=== PATIENT | female | born 1960 | race Caucasian/White ===

== ENCOUNTER 2021-02-09 12:25 | Outpatient (RCR) | payer OTHER | END 2021-03-03 | disposition home or self-care (01) | LOC: ONC 12:25 | PROVIDERS: ATTEND Internal Medicine Hematology & Oncology | DX: D47.2 Monoclonal gammopathy (principal); L50.8 Other urticaria; E66.9 Obesity, unspecified; Z72.0 Tobacco use | CPT/HCPCS: 99214 ==

== ENCOUNTER 2021-03-09 10:21 | Outpatient (RCR) | payer OTHER ==
[2021-03-31] MEDS ORDERED: LEVO137T32 PO (08:03)
== END 2021-04-03 | disposition home or self-care (01) ==
LOC: ONC 10:21
PROVIDERS: ATTEND Internal Medicine Hematology & Oncology
DX: D47.2 Monoclonal gammopathy (principal); L50.8 Other urticaria; E66.9 Obesity, unspecified; E03.9 Hypothyroidism, unspecified; C90.00 Multiple myeloma not having achieved remission; Z72.0 Tobacco use
CPT/HCPCS: 99213

== ENCOUNTER 2021-03-31 07:24 | Day surgery (SDC) | payer OTHER ==
[~2021-03-31] VITALS: Ht 172.7 cm; Wt 159.2 kg
[2021-03-31] MEDS ORDERED: LEVO137T32 PO (08:03)
[2021-03-31 08:15] LABS: BASOPHILS % (AUTO) 1 % (0-10); EOSINOPHILS # (AUTO) 0.1 10^3/uL (0.0-0.3); EOSINOPHILS % (AUTO) 2 % (0-10); HEMATOCRIT 40 % (35-52); HEMOGLOBIN 13.2 g/dL (11.5-16.0); MEAN CORPUSCULAR HEMOGLOBIN 32 pg (25-34); MEAN CORPUSCULAR HGB CONC 33 g/dL (32-36); MEAN CORPUSCULAR VOLUME 97 fL (80-99); MONOCYTES # (AUTO) 0.5 10^3/uL (0.0-1.0); PLATELET COUNT 155 10^3/uL (130-400)
[2021-03-31] MEDS ORDERED: fentaNYL INJ 100 MCG/2 ML AMP INJ ONE (08:15)
[2021-03-31] MEDS ORDERED: MIDAZOLAM 2 MG/2 ML (VERSED) VIAL INJ ONE (08:15)
[2021-03-31] MEDS ORDERED: LIDOCAINE 1% INJ 20 ML VIAL INJ ONE (08:15)
[2021-03-31] MEDS ORDERED: NS IV 1000 ML 1,000 ML ONE (08:25)
[2021-03-31 08:26] LABS: PROTHROMBIN TIME PATIENT 13.4 SEC (12.2-14.7)
[2021-03-31 08:37] LABS: ABSOLUTE RETIC # 70 10e9/uL (24-90); LYMPHOCYTES # (AUTO) 1.4 10^3/uL (1.0-4.0); LYMPHOCYTES % (AUTO) 28 % (12-44); MEAN PLATELET VOLUME 11.4 fL (9.0-12.2); MONOCYTES % (AUTO) 11 % (0-12); NEUTROPHILS % (AUTO) 59 % (42-75)
[2021-03-31 08:48] LABS: EOSINOPHILS % (MANUAL) 3 %; LYMPHOCYTES % (MANUAL) 27 %; MONOCYTES % (MANUAL) 9 %; NEUTROPHILS % (MANUAL) 61 %
[2021-03-31 08:50] LABS: RBC MORPH NORMAL
[2021-03-31 09:15] VITALS: BP 141/93
[2021-03-31 09:20] VITALS: BP 143/91
[2021-03-31 09:25] VITALS: BP 158/101
[2021-03-31] MEDS ORDERED: NS IV 1000 ML 1,000 ML IV SCH (10:00)
--- NOTE | 2021-03-31 10:04 | Pre-Op Note & Conscious Sedat ---
Pre-Operative Progress Note H&P Reviewed The H&P was reviewed, patient examined and no changes noted. Date H&P Reviewed: Mar 31, 2021 Time H&P Reviewed: 08:00 Pre-Op Diagnosis: myeloma Conscious Sedation Pre-Proced Time 08:00 ASA Score 2 For ASA 3 and 4: Consider anesthesia and medical clearance. Also, for patients with a history of failed moderate sedation consider anesthesia. Airway Lungs Heart ASA score ASA 1: a normal healthy patient ASA 2: a patient with a mild systemic disease (mid diabetes, controlled hypertension, obesity ASA 3: a patient with a severe systemic disease that limits activity (angina, COPD, prior Myocardial infarction) ASA 4: a patient with an incapacitating disease that is a constant threat to life (CHF, renal failure) ASA 5: a moribund patient not expected to survive 24 hrs. (ruptured aneurysm) ASA 6: a declared brain- patient whose organs are being harvested. For emergent operations, add the letter E after the classification Mallampati Classification Grade 2 Sedation Plan Analgesia, Amnesia, Plan communicated to team members, Discussed options with patient/fam, Discussed risks with patient/fam The patient is an appropriate candidate to undergo the planned procedure, sedation, and anesthesia. The patient immediately re-assessed prior to indication. LETICIA SEAMAN MD Mar 31, 2021 10:04
[2021-03-31] MEDS ORDERED: ACETAMINOPHEN 500 MG TAB (TYLENOL) ONE (10:12)
[2021-03-31] MEDS ORDERED: ACETAMINOPHEN 500 MG TAB (TYLENOL) PO ONE (10:15)
--- NOTE | 2021-03-31 10:46 | Diagnostic Imaging Report ---
INDICATION: Multiple myeloma. Patient presents for CT-guided bone marrow aspiration and biopsy. TECHNIQUE: Patient was brought to the CT suite, placed on table in the prone position. Axial imaging through the pelvis was performed to evaluate appropriate entry site. The procedure was performed utilizing conscious sedation with radiology nursing and constant patient monitoring. Patient was given total of 50 mcg of fentanyl intravenously and 1 mg of Versed intravenously. Total procedure time is approximately 6 minutes. Low back was prepped and draped in the usual sterile fashion. Small amount of 1% lidocaine was utilized for local anesthesia. The bone marrow needle was advanced and placed with its tip along the posterior cortex of the right iliac bone. The needle was passed through the cortex utilizing a bone marrow drill. Two bone marrow aspirates were then obtained. Next, the drill was again utilized to obtain a bone marrow core biopsy. Needle was removed and hemostasis was obtained using manual compression. Patient tolerated the procedure well and left the department in stable condition. IMPRESSION: Successful CT-guided bone marrow aspiration and core biopsy, utilizing conscious sedation. Pathology results are currently pending. Dictated by: Dictated on workstation # [id number]
[2021-03-31 11:35] VITALS: BP 129/79
[2021-03-31] MEDS ORDERED: HYDROcodone/APAP 5 MG/325 MG (LORTAB) TAB PO PRN (11:45)
== END 2021-03-31 12:13 | disposition home or self-care (01) ==
LOC: RAD 07:24
PROVIDERS: ATTEND Internal Medicine Hematology & Oncology
DX: C90.00 Multiple myeloma not having achieved remission (principal)
CPT/HCPCS: 36415; 38222; 77012; 85007; 85027; 85045; 85610; 85730; 88237; 88264; 99156

== ENCOUNTER → 2021-04-03 | Outpatient (CLI) | payer OTHER ==
[~2021-04-03] MED LIST: LEVO137T32 PO
--- NOTE | 2021-04-03 16:55 | Diagnostic Imaging Report ---
BONE SURVEY COMPLETE Comparison: None available. Indication: Multiple myeloma Technique: Multiple projections of the skull, appendicular and axial skeleton were obtained for a total of 24 views. Findings: Skull: No focal lytic lesion within the calvarium. 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 No destructive skeletal lesion is appreciated within the spine. Mild degenerative wedging of a few lower thoracic vertebrae. Chest: No expansile lytic lesion within the ribs. Pelvis: Mild irregularity of the left iliac wing has a chronic appearance. Lower extremities: No focal osseous lesion or endosteal scalloping. No periosteal reaction. Prior ACL reconstruction on the right. Upper extremities: No focal osseous lesion or endosteal scalloping. No periosteal reaction. Impression: 1. No focal lytic lesion within the axial and appendicular skeleton. Dictated by: Dictated on workstation # [id number]
== END ==
LOC: RAD 13:41
PROVIDERS: ATTEND Internal Medicine Hematology & Oncology
DX: C90.00 Multiple myeloma not having achieved remission (principal)
CPT/HCPCS: 77075

== ENCOUNTER 2021-04-26 09:43 | Outpatient (RCR) | payer OTHER | END 2021-05-01 | disposition home or self-care (01) | LOC: ONC 09:43 | PROVIDERS: ATTEND Internal Medicine Hematology & Oncology | DX: C90.00 Multiple myeloma not having achieved remission (principal); D47.2 Monoclonal gammopathy; L50.8 Other urticaria; E66.9 Obesity, unspecified; E03.9 Hypothyroidism, unspecified; Z72.0 Tobacco use | CPT/HCPCS: 99213 ==

== ENCOUNTER → 2021-05-03 | Outpatient (CLI) | payer OTHER ==
[~2021-05-03] MED LIST changes: +HOLD METFORMIN - RECEIVED CONTRAST 20 ML VIAL IV SCH; +IOHEXOL 350 MG/ML 100 ML (OMNIPAQUE 350) VIAL IV ONE; +NS 100 ML (IVPB) BAG IV ONE
--- NOTE | 2021-05-03 16:26 | Diagnostic Imaging Report ---
INDICATION: History of multiple myeloma. EXAMINATION: CT chest, abdomen, and pelvis with and without contrast on 05/03/2021. COMPARISON: None. FINDINGS: CHEST: There is bibasilar dependent atelectasis and/or scar. Within the right upper lobe, there is a vague nodularity which measures 5.3 mm in size. An almost 3 mm nodule in the peripheral aspect of the right upper lobe is seen laterally. The remaining lungs are clear. No pleural or pericardial effusions. No mediastinal or hilar adenopathy. No axillary adenopathy. The osseous structures are unremarkable. ABDOMEN/PELVIS: The liver, spleen, gallbladder, pancreas, and adrenal glands are unremarkable. There is a cystic lesion in the right kidney, simple in appearance. The left kidney is unremarkable. There is no ascites. There is no free air. There is no acute osseous abnormality. IMPRESSION: Incidental findings with no acute abnormality appreciated. Dictated by: Dictated on workstation # [id number]
== END ==
LOC: RAD 09:45
PROVIDERS: ATTEND Internal Medicine Hematology & Oncology
DX: E07.9 Disorder of thyroid, unspecified (principal); Z85.79 Personal history of other malignant neoplasms of lymphoid, hematopoietic and related tissues
CPT/HCPCS: 71260; 74178

== ENCOUNTER 2021-05-10 10:04 | Outpatient (RCR) | payer OTHER ==
[2021-05-03 10:51] LABS: BASOPHILS % (AUTO) 1 % (0-10); EOSINOPHILS # (AUTO) 0.1 10^3/uL (0.0-0.3); EOSINOPHILS % (AUTO) 3 % (0-10); HEMATOCRIT 41 % (35-52); HEMOGLOBIN 13.9 g/dL (11.5-16.0); LYMPHOCYTES # (AUTO) 1.6 10^3/uL (1.0-4.0); LYMPHOCYTES % (AUTO) 32 % (12-44); MEAN CORPUSCULAR HEMOGLOBIN 32 pg (25-34); MEAN CORPUSCULAR HGB CONC 34 g/dL (32-36); MEAN CORPUSCULAR VOLUME 94 fL (80-99); MEAN PLATELET VOLUME 10.8 fL (9.0-12.2); MONOCYTES # (AUTO) 0.5 10^3/uL (0.0-1.0); MONOCYTES % (AUTO) 10 % (0-12); NEUTROPHILS # (AUTO) 2.8 10^3/uL (1.8-7.8); NEUTROPHILS % (AUTO) 55 % (42-75); PLATELET COUNT 173 10^3/uL (130-400)
[2021-05-03 11:17] LABS: ALBUMIN 3.8 GM/DL (3.2-4.5); BILIRUBIN,TOTAL 0.6 MG/DL (0.1-1.0); CALCIUM 8.7 MG/DL (8.5-10.1)
[~2021-05-10 10:04] MED LIST changes: -HOLD METFORMIN - RECEIVED CONTRAST 20 ML VIAL IV SCH; -IOHEXOL 350 MG/ML 100 ML (OMNIPAQUE 350) VIAL IV ONE; -NS 100 ML (IVPB) BAG IV ONE
== END 2021-06-01 | disposition home or self-care (01) ==
LOC: ONC 10:04
PROVIDERS: ATTEND Internal Medicine Hematology & Oncology
DX: Z45.2 Encounter for adjustment and management of vascular access device (principal); E07.9 Disorder of thyroid, unspecified; C90.00 Multiple myeloma not having achieved remission; D47.2 Monoclonal gammopathy; L50.8 Other urticaria; E66.9 Obesity, unspecified; E03.9 Hypothyroidism, unspecified; Z72.0 Tobacco use
CPT/HCPCS: 36415; 80053; 85025; 99213

== ENCOUNTER 2021-11-20 10:28 | Outpatient (RCR) | payer OTHER | END 2021-12-01 | disposition home or self-care (01) | LOC: ONC 10:28 | PROVIDERS: ATTEND Internal Medicine Hematology & Oncology | DX: D47.2 Monoclonal gammopathy (principal); E07.9 Disorder of thyroid, unspecified; L50.8 Other urticaria; E66.9 Obesity, unspecified; E03.9 Hypothyroidism, unspecified; Z72.0 Tobacco use | CPT/HCPCS: 99213 ==

== ENCOUNTER 2022-04-30 08:44 | Outpatient (RCR) | payer OTHER | END 2022-05-01 | disposition home or self-care (01) | LOC: ONC 08:44 | PROVIDERS: ATTEND Internal Medicine Hematology & Oncology | DX: D47.2 Monoclonal gammopathy (principal); E07.9 Disorder of thyroid, unspecified; L50.8 Other urticaria; E66.9 Obesity, unspecified; E03.9 Hypothyroidism, unspecified; Z72.0 Tobacco use ==

== ENCOUNTER 2022-05-21 08:51 | Outpatient (RCR) | payer OTHER | END 2022-06-01 | disposition home or self-care (01) | LOC: ONC 08:51 | PROVIDERS: ATTEND Internal Medicine Hematology & Oncology | DX: D47.2 Monoclonal gammopathy (principal); E07.9 Disorder of thyroid, unspecified; L50.8 Other urticaria; E66.9 Obesity, unspecified; E03.9 Hypothyroidism, unspecified; Z72.0 Tobacco use ==

== ENCOUNTER 2022-08-20 08:42 | Outpatient (RCR) | payer OTHER | END 2022-08-31 | disposition home or self-care (01) | LOC: ONC 08:42 | PROVIDERS: ATTEND Internal Medicine Hematology & Oncology | DX: D47.2 Monoclonal gammopathy (principal); E07.9 Disorder of thyroid, unspecified; L50.8 Other urticaria; E66.9 Obesity, unspecified; E03.9 Hypothyroidism, unspecified; Z72.0 Tobacco use ==